=== PATIENT | male | born 1990 | race Caucasian/White ===

== ENCOUNTER 2017-01-23 09:33 | Emergency (ER) | payer MEDICAID ==
[~2017-01-23] VITALS: Ht 182.9 cm; Wt 67.8 kg
[~2017-01-23 09:33] MED LIST: HYDR-3240 PO
[2017-01-23 09:34] VITALS: BP 137/83
[2017-01-23] MEDS ORDERED: MAALOX/HYOSCYAMINE/LIDOCAINE 45 ML BOTTLE PO ONE (12:30)
[2017-01-23] MEDS ORDERED: MAALOX/HYOSCYAMINE/LIDOCAINE 45 ML BOTTLE ONE (12:42)
[2017-01-23 13:07] LABS: ASPARTATE AMINO TRANSFERASE 14 U/L (15-37); BLOOD UREA NITROGEN 8 mg/dL (7-18)
== END 2017-01-23 13:38 | disposition home or self-care (01) ==
LOC: ED 12:25
DX: R07.89 Other chest pain (principal)
CPT/HCPCS: 36415; 71010; 80053; 83690; 85025; 93005

== ENCOUNTER 2017-01-30 08:14 | Emergency (ER) | payer MEDICAID ==
[~2017-01-30] VITALS: Ht 180.3 cm; Wt 68.4 kg
[2017-01-30] MEDS ORDERED: KETOROLAC 30 MG/1 ML ONE (08:47)
[2017-01-30] MEDS ORDERED: KETOROLAC 30 MG/1 ML IM ONE (09:00)
[2017-01-30 09:35] LABS: BLOOD UREA NITROGEN 13 mg/dL (7-18)
[2017-01-30 09:41] LABS: ASPARTATE AMINO TRANSFERASE 17 U/L (15-37)
[2017-01-30 09:42] LABS: IS PT STATUS REG ER OR PRE ER? YES
[2017-01-30 10:12] VITALS: BP 119/77
== END 2017-01-30 10:14 | disposition home or self-care (01) ==
LOC: ED 10:00
DX: M94.0 Chondrocostal junction syndrome [Tietze] (principal)
CPT/HCPCS: 36415; 71010; 80053; 83690; 84484; 85025; 93005; 96372; 99285; J1885

== ENCOUNTER 2021-01-16 08:14 | Emergency (ER) | payer SELFPAY ==
[~2021-01-16] VITALS: Ht 182.9 cm; Wt 72.7 kg
[~2021-01-16 08:14] MED LIST changes: +HYDR-2214 PO; -HYDR-3240 PO
--- NOTE | 2021-01-16 09:48 | NUR ---
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
--- NOTE | 2021-01-16 10:42 | NUR ---
C/O PAIN TO POSTERIOR NECK AT BASE OF SKULL; STARTED FRIDAY. TOOK ADVIL LAST NOC, NONE TODAY. REPORTS RT EYE BLURRINESS. PT WEARING GLASSES. A&OX4, RESP EVEN & UNLABORED, SPEECH CLEAR, SKIN WNL.
[2021-01-16 10:44] VITALS: BP 122/74
--- NOTE | 2021-01-16 10:57 | NUR ---
VISUAL ACCUITY COMPLETED. WILL CONSULT ERP/PA RE: PAIN MED.
== END 2021-01-16 11:36 | disposition home or self-care (01) ==
LOC: ED 09:59
DX: G44.219 Episodic tension-type headache, not intractable (principal); H53.8 Other visual disturbances; M54.2 Cervicalgia; Z87.891 Personal history of nicotine dependence
CPT/HCPCS: 70450; 99284